=== PATIENT | male | born 1970 | race African-American/Black ===

== ENCOUNTER 2020-07-16 05:33 | Emergency (ER) | payer MEDICAID ==
[~2020-07-16] VITALS: Ht 185.4 cm; Wt 121.0 kg
[2020-07-16] MEDS ORDERED: NALOXONE HCL 0.4 MG/ML 1ML VIAL IV ONE (06:00)
[2020-07-16 06:02] LABS: BASOPHILS % 0.6 % (0.0-2.0); EOSINOPHILS % 0.8 % (0.0-5.0); HEMATOCRIT. 39.7 % (42.0-52.0); HEMOGLOBIN. 11.9 g/dL (14.0-18.0); LYMPHOCYTES % 9.3 % (20.0-50.0); MEAN CORPUSCULAR VOLUME 86.7 fL (80.0-94.0); MEAN PLATELET VOLUME 8.3 fl (7.4-10.4); MONOCYTES % 5.8 % (2.0-8.0); NEUTROPHILS % 83.5 % (40.0-76.0); PLATELET 254 x1000/uL (130-400); RED BLOOD CELL COUNT 4.58 mill/uL (4.7-6.1)
[2020-07-16 06:08] LABS: CHLORIDE 113 mEq/L (98-107)
[2020-07-16 06:12] LABS: ETHANOL BLOOD < 10 mg/dL; INR 1.2; PROTHROMBIN TIME 12.8 sec (9.6-11.0)
[2020-07-16] MEDS ORDERED: LORAZEPAM 2MG/ML CPJ IM ONE (06:30)
[2020-07-16] MEDS ORDERED: OLANZAPINE 10 MG/VIAL IM ONE (06:30)
[2020-07-16] MEDS ORDERED: SODIUM CHLORIDE 0.9% 1,000 ML IV ONE (07:30)
[2020-07-16 09:08] LABS: *BARBITURATES SCREEN URINE NEGATIVE (NEGATIVE); *BENZODIAZEPINES SCREEN URINE NEGATIVE (NEGATIVE); CANNABINOID URINE SCREEN NEGATIVE (NEGATIVE)
[2020-07-16 09:09] LABS: *AMPHETAMINES SCREEN URINE PRESUMTIVE POSITIVE (NEGATIVE); *COCAINE SCREEN URINE PRESUMTIVE POSITIVE (NEGATIVE); METHADONE URINE SCREEN NEGATIVE (NEGATIVE); OPIATES URINE SCREEN NEGATIVE (NEGATIVE); PHENCYCLIDINE URINE SCREEN PRESUMTIVE POSITIVE (NEGATIVE)
[2020-07-16 19:36] VITALS: BP 143/91
== END 2020-07-16 20:07 | disposition home or self-care (01) ==
LOC: ER 05:33 → EDBD 05:33 → ER 20:07
DX: G92 Toxic encephalopathy (principal); F16.10 Hallucinogen abuse, uncomplicated; F15.10 Other stimulant abuse, uncomplicated; F14.10 Cocaine abuse, uncomplicated; E86.0 Dehydration; Z98.890 Other specified postprocedural states
CPT/HCPCS: 36415; 70450; 80053; 80305; 80307; 80320; 80329; 82962; 85025; 85610; 93005; 96361; 96372; 96374; 99285; J2060; J2310; J3490; J7030; Z7610; G0480